=== PATIENT | female | born 1955 | race Caucasian/White ===

== ENCOUNTER 2017-03-29 14:17 | Outpatient (CLI) | payer BC ==
[~2017-03-29 14:17] MED LIST: PROZAC20 MG PO
--- NOTE | 2017-03-29 14:40 | DIAGNOSTIC IMAGING REPORT ---
PROCEDURE: MG BILATERAL SCREENING W/CAD INDICATION: Screening. TECHNIQUE: Bilateral CC and MLO digital views. COMPARISON: Compared to 07/22/2015, 07/23/2014, and 07/24/2013. FINDINGS: Computer-aided detection applied. Mildly to moderately dense with a few dystrophic calcifications. No change. IMPRESSION: 1. Negative mammogram RESULT CODE: 1- Negative. A. A negative report should not delay biopsy if a dominant or clinically suspicious mass is present. 10-15% of cancers are not identified by x-ray. B. A negative report may reinforce clinical impression. C. Adenosis and dense breasts may obscure an underlying neoplasm. D. False positive reports average 6-10%. E.. A yearly screening mammogram is recommended. A reminder letter will be scheduled.
== END 2017-03-29 23:00 | disposition home or self-care (01) ==
LOC: MAM SRH 14:17
DX: Z12.31 Encounter for screening mammogram for malignant neoplasm of breast (principal)